=== PATIENT | male | born 1980 | race African-American/Black ===

== ENCOUNTER 2016-12-26 06:36 | Emergency (ER) | payer MEDICARE ==
[2016-10-07 09:46] VITALS: BMI 25.1
[~2016-12-26 06:36] MED LIST: AMBIEN5 MG PO; ARANESP40 MCG/ML SC; CATAPRES0.2 MG PO; COREG12.5 MG PO; FERROUS SULFAT325 MG PO; FLORANEX / LACT1 TAB PO; FLUTICASONE PRO16 GM NASAL; GABAPENTIN100 MG PO; HUMALOG 30100 UNITS/ SC; HYDRALAZINE HCL50 MG PO; LANTUS INSULIN10 ML SC; LASIX80 MG PO; LISINOPRIL10 MG PO; MAG-OX 400 MG400 MG PO; MUCINEX DM ER1 EAC1 PO; NORCO 7.5/325 T1 TA1 PO; NORVASC10 MG PO; POTASSIUM20 MEQ/15 PO; PRINIVIL20 MG PO; PROTONIX40 MG PO; ROCALTROL0.25 MCG PO; TESSALON PERLE100 MG PO; TUMS500 MG PO
[2016-12-26 07:13] LABS: BASOPHILS 0.2 % (0.0-2.0); EOSINOPHILS 0.4 % (0-7); HEMATOCRIT 35.5 % (42.0-54.0); HEMOGLOBIN 11.9 g/dL (13.5-17.5); IMMATURE GRANULOCYTES 0.4 % (0-5); LYMPHOCYTES 15.4 % (15-50); MCH 29.9 pg (26.0-34.0); MCHC 33.5 g/dL (31.0-37.0); MCV 89.2 fL (80.0-100.0); MEAN PLATELET VOLUME 9.3 fL (7.4-10.4); MONOCYTES 6.2 % (2-11); NEUTROPHILS 77.4 % (40-80); RBC 3.98 10x6/uL (4.20-6.10); RDW 13.5 % (11.5-14.5); WBC 13.7 10x3/uL (4.8-10.8)
[2016-12-26 07:16] LABS: PLATELET COUNT 371 10x3/uL (130-400)
[2016-12-26 07:27] LABS: ANION GAP 19.1 mmol/L (8-16); BILIRUBIN - TOTAL 0.52 mg/dL (0.2-1.3); CALCIUM 9.9 mg/dL (8.5-10.1); CARBON DIOXIDE 25.9 mmol/L (21.0-32.0); CREATININE - SERUM 9.3 mg/dL (0.6-1.3); PROTEIN - SERUM 8.6 g/dL (6.4-8.2)
== END 2016-12-26 10:35 | disposition home or self-care (01) ==
LOC: D.ER 06:36
PROVIDERS: Emergency Medicine
DX: R11.10 Vomiting, unspecified (principal); I12.0 Hypertensive chronic kidney disease with stage 5 chronic kidney disease or end stage renal disease; N18.6 End stage renal disease; F17.200 Nicotine dependence, unspecified, uncomplicated

== ENCOUNTER 2016-12-27 10:18 | Inpatient (IN) | payer MEDICARE ==
[~2016-12-27] VITALS: Ht 167.6 cm; Wt 63.2 kg
[2016-12-27 12:08] LABS: BASOPHILS 0.3 % (0.0-2.0); EOSINOPHILS 0.4 % (0-7); HEMATOCRIT 37.7 % (42.0-54.0); HEMOGLOBIN 12.6 g/dL (13.5-17.5); IMMATURE GRANULOCYTES 0.3 % (0-5); LYMPHOCYTES 20.5 % (15-50); MCH 29.8 pg (26.0-34.0); MCHC 33.4 g/dL (31.0-37.0); MCV 89.1 fL (80.0-100.0); MEAN PLATELET VOLUME 9.2 fL (7.4-10.4); MONOCYTES 6.5 % (2-11); PLATELET COUNT 372 10x3/uL (130-400); RBC 4.23 10x6/uL (4.20-6.10); RDW 13.6 % (11.5-14.5); WBC 11.8 10x3/uL (4.8-10.8)
[2016-12-27 12:17] LABS: KETONE - SERUM NEGATIVE (NEGATIVE)
[2016-12-27 12:25] LABS: ALBUMIN 4.1 g/dL (3.4-5.0); ALKALINE PHOSPHATASE 158 U/L (46-116); ALT (SGPT) 17 U/L (10-68); AMYLASE - SERUM 84 U/L (25-115); BILIRUBIN - TOTAL 0.57 mg/dL (0.2-1.3); CALCIUM 10.1 mg/dL (8.5-10.1); CARBON DIOXIDE 25.7 mmol/L (21.0-32.0); CHLORIDE - SERUM 99 mmol/L (98-107); LIPASE 84 U/L (73-393); POTASSIUM - SERUM 4.6 mmol/L (3.5-5.1); PROTEIN - SERUM 8.8 g/dL (6.4-8.2); SODIUM 142 mmol/L (136-145); eGFR NON AFRICAN AMERICAN 5 mL/min (90-120)
[2016-12-27 12:27] LABS: CALC OSMOLALITY 307 mosm/kg (275-300); CREATININE - SERUM 12.6 mg/dL (0.6-1.3); GLUCOSE 260 mg/dL (74-106); UREA NITROGEN 57 mg/dL (7-18)
--- NOTE | 2016-12-27 16:35 | NUR ---
ARRIVE TO ROOM VIA STRETCHER FROM ER. LETHARGIC. UNABLE TO FOLLOW COMMANDS. MAX TRANSFER FROM STRETCHER TO BED. SPEECH GARBLED. UNABLE TO COMPLETE MED REC. PATIENT'S BROTHER WILL BRING CURRENT LIST. CONTINUE ADMISSION PROCESS. BED LOCKED AND LOW. CALL LIGHT IN REACH. TWO SIDERAILS UP.
[2016-12-27 18:12] VITALS: BP 188/87
[2016-12-27 18:26] VITALS: BP 188/87; BMI 23.6
[2016-12-27 20:00] VITALS: BP 186/102
--- NOTE | 2016-12-27 23:54 | NUR ---
PT AWOKE AT 22:45, CONFUSED, CRYING UNCONTROLLABLY, DISORIENTED, AND VERY FRIGHTENED. PT WAS EASILY CONSOLABLE, BUT REMAINS CONFUSED AND DISORIENTED. I HAVE ASSURED PT THAT HE IS SAFE, AND THAT WE WILL DO EVERYTHING WE CAN TO HELP HIM FEEL BETTER. PT DID EAT A JELLO, AND DID DRINK 2 LARGE CUPS OF H2O. PT IS CURRENTLY RESTING WITHOUT ANY ACUTE DISTRESS OR NEEDS. EYES CLOSED, RESPIRATIONS EVEN AND UNLABORED. PT IS EASILY ROUSABLE AT THIS TIME TO VERBAL STIMULI. WE HAVE BEEN UNABLE TO OBTAIN A U/A AT THIS TIME, BUT WILL CONTINUE TO ASSESS FREQUENTLY AND COLLECT ONE SOON PT VOIDS.
[2016-12-28 04:15] VITALS: BP 194/107
[2016-12-28 05:53] LABS: BASOPHILS 0.4 % (0.0-2.0); EOSINOPHILS 1.4 % (0-7); HEMATOCRIT 36.2 % (42.0-54.0); IMMATURE GRANULOCYTES 0.3 % (0-5); LYMPHOCYTES 24.8 % (15-50); MCH 29.6 pg (26.0-34.0); MCHC 33.1 g/dL (31.0-37.0); MCV 89.4 fL (80.0-100.0); MEAN PLATELET VOLUME 9.4 fL (7.4-10.4); MONOCYTES 10.1 % (2-11); PLATELET COUNT 345 10x3/uL (130-400); RBC 4.05 10x6/uL (4.20-6.10); RDW 13.5 % (11.5-14.5); WBC 11.6 10x3/uL (4.8-10.8)
[2016-12-28 06:38] LABS: ANION GAP 22.3 mmol/L (8-16); CALCIUM 9.4 mg/dL (8.5-10.1); CARBON DIOXIDE 22.3 mmol/L (21.0-32.0); CREATININE - SERUM 13.8 mg/dL (0.6-1.3); PHOSPHOROUS 7.4 mg/dL (2.5-4.9); POTASSIUM - SERUM 4.6 mmol/L (3.5-5.1); TROPONIN-I 0.021 ng/mL (0.000-0.060); VANCOMYCIN - RANDOM 17.3 ug/mL (10.0-20.0)
--- NOTE | 2016-12-28 06:50 | NUR ---
PT EASILY ROUSABLE THE AM TO VERBAL STIMULI. PT IS COOPERATIVE AND DOES FOLLOW SIMPLE COMMANDS. PT DEMONSTRATES RIGOROUS SHAKING, AND STATES HE FEELS LIKE HE IS FEBRILE AT THIS TIME. PT STATES HE HAS A BAD HEADACHE. DENIES ANY OTHER NEEDS.
--- NOTE | 2016-12-28 07:30 | NUR ---
RECEIVED REPORT. ASSUMED CARE OF PATIENT. CALL LIGHT WITHIN REACH. RESTING WITH EYES CLOSED. PATIENT NOTED TO BE SNORING. RESP EVEN AND UNLABORED. NO DISTRESS.
[2016-12-28 08:27] VITALS: BP 191/95
--- NOTE | 2016-12-28 09:28 | NUR ---
0900 ATTEMPTING TO GET PATIENT REPOSITIONED IN BED TO TRAVEL DOWNSTAIRS TO DIALYSIS UNIT, PATIENT NOT NOT FOLLOWING COMMANDS. PATIENT NOTED TO BE COUGHING AND CLEAR SPUTUM DROOLING OUT SIDE OF MOUTH. PATIENT PLACED ON LEFT SIDE, SUCTION PROVIDED. PULMONARY PHYSICAL THERAPIST AT BEDSIDE AT THIS TIME. DIALYSIS AT BEDSIDE TO RETRIEVE PATIENT. PATIENT UNABLE TO LEAVE UNIT. REQUEST DIALYSIS BE DONE AT BEDSIDE. HYPERTENION NOTED, 203/93. O2 SAT 97% ON ROOM AIR. DIALYSIS BRINGING MACHINES UP TO UNIT AT THIS TIME. PATIENT RESPONDING TO NAME BY TURNING HEAD IN DIRECTION OF THIS WRITERS VOICE. WILL CONTINUE TO MONITOR.
--- NOTE | 2016-12-28 09:40 | NUR ---
IV access-22 gauge IV catheter in left wrist after 3 attempts, due to patient uncooperative, pulling at IV and twisting and turning away. Maine Vasques RN
--- NOTE | 2016-12-28 11:36 | NUR ---
DIALYSIS AT BEDSIDE AT THIS TIME. RESTING ON LEFT LATERAL SIDE. RESP EVEN AND UNLABORED. NO DISTRESS. PATIENT CONTINUES TO FIGHT WHEN CARES ARE BEING RENDERED. RESPONDS TO NAME BUT DOES NOT FOLLOW DIRECTIONS WELL. THIS IS NOT CHANGE IN PATIENT CONDITION SINCE RECEIVED REPORT THIS AM.
[2016-12-28 12:02] VITALS: BP 198/85
--- NOTE | 2016-12-28 13:32 | NUR ---
DIALYSIS REMAINS AT BEDSIDE. TOLERATING DIALYSIS WELL. PATIENT BECOMING MORE RESPONSIVE AND MOVING MORE IN BED. TELEMETRY PATENT. NO DISTRESS. RESP EVEN AND UNLABORED.
[2016-12-28 14:26] VITALS: Ht 167.6 cm; Wt 63.2 kg
--- NOTE | 2016-12-28 14:43 | NUR ---
DR. HAM AT BEDSIDE AND INFORMED HIM THAT PATIENT PHYSICAL STATE HAS NOT CHANGED MUCH ALL DAY, HE IS NOT DOING ALOT THAT WE ASK OF HIM AND ONLY RESPONDING TO NAME. REPORTED THAT PATIENT DOES FIGHT AND MOVE AWAY FROM US WHEN TRYING TO PROVIDED CARES. WHEN DIALYSIS IS COMPLETE, INFORMED DR THAT CATAPRESS PATCH WOULD BE APPLIED BUT WITH HIM NOT RESPONDING APPROPRIATELY, NOT ABLE TO GIVE HIM ANY PO MEDS. ASKED IF WE COULD HAVE AN IV ANTIHYPERTENSIVE MED. DR. HAM GAVE ORDERS THAT CT OF HEAD OF NEGATIVE, NOT SURE WHAT PATIENT HAS BEEN DOING AT HOME AND IF NO IMPROVEMENT, DAY SHIFT NURSE MUST CONSULT FIRST THING IN AM.
--- NOTE | 2016-12-28 14:57 | NUR ---
DIALYSIS COMPLETE. 1400 REMOVED FROM PATIENT. PATIENT CONTINUES TO SLEEP. WILL OPEN EYES WHEN NAME IS CALLED AND QUICKLY CLOSES EYES AND FALLS ASLEEP. CATAPRES PATCH 0.3MG PLACED TO LEFT DELTOID AREA AT THIS TIME. RESP EVEN AND UNLABORED.
--- NOTE | 2016-12-28 15:00 | NUR ---
PATIENT HAS NOW PLACED HIMSELF IN PRONE POSITION AND RESTING WITH EYES CLOSED.
[2016-12-28 16:38] VITALS: BP 196/108
--- NOTE | 2016-12-28 17:08 | NUR ---
FSBS 108. NO INSULIN COVERAGE PROVIDED PER SLIDING SCALE.
[2016-12-28 21:06] VITALS: BP 180/85
--- NOTE | 2016-12-28 22:00 | NUR ---
RECEIVED IN BEDROOM. LETHARGIC. UNABLE TO VERBALIZE NEEDS. CONTINUOUSLY ATTEMPTS TO STAND AND WALK WITHOUT ASSIST. GHAZALA BRYAN CALLED AND RECEIVED PULL MHT FROM [facility] TO SIT ONE ON ONE WITH PATIENT FOR SAFETY. BED ALARM IS ON AND CONTINUE TO SOUND WHEN ATTEMPTS TO STAND ARE MADE. CONTINUE TO MONITOR FOR SAFETY
[2016-12-29] VITALS (34 sets, daily range): BP systolic 110–222; BP diastolic 68–128
--- NOTE | 2016-12-29 00:01 | NUR ---
B/P 222/110. LILIBETH DONOVAN PAGED. NEW ORDER FOR LOPRESSOR 5 MG IV RECEIVED AND GIVEN.
--- NOTE | 2016-12-29 02:00 | NUR ---
SPOKE WITH LILIBETH DONOVAN, LADLE MECHANIC FOR RENAL R/T PTS UNCONTROLLED HTN WITHOUT RESPONDING TO THE IV LOPRESSOR GIVEN 1 HOUR PRIOR TO RECHECK. PT DOES HAVE THE CATAPRES 0.3 PATCH ON HIS LEFT DELTOID, AND HAS HAD THE 21:00 DOSE OF LISINOPRIL, ALSO WITHOUT ANY IMPROVEMENT. PT C/O A HAD HEADACHE AT THIS TIME. APRESOLINE 25MG IV Q 6 HOURS PRN SYSTOLIC PRESSURE > 170. WILL ADMINISTER AND CONTINUE TO MONITOR PT CLOSELY.
[2016-12-29 05:52] LABS: BASOPHILS 0.3 % (0.0-2.0); EOSINOPHILS 2.5 % (0-7); HEMATOCRIT 36.6 % (42.0-54.0); HEMOGLOBIN 12.2 g/dL (13.5-17.5); IMMATURE GRANULOCYTES 0.4 % (0-5); LYMPHOCYTES 23.9 % (15-50); MCH 29.8 pg (26.0-34.0); MCHC 33.3 g/dL (31.0-37.0); MCV 89.5 fL (80.0-100.0); MEAN PLATELET VOLUME 9.8 fL (7.4-10.4); MONOCYTES 12.4 % (2-11); NEUTROPHILS 60.5 % (40-80); PLATELET COUNT 322 10x3/uL (130-400); RBC 4.09 10x6/uL (4.20-6.10); RDW 13.4 % (11.5-14.5); WBC 11.1 10x3/uL (4.8-10.8)
[2016-12-29 06:39] LABS: ANION GAP 20.4 mmol/L (8-16); CALCIUM 9.4 mg/dL (8.5-10.1); CARBON DIOXIDE 27.6 mmol/L (21.0-32.0); PHOSPHOROUS 6.5 mg/dL (2.5-4.9); THYROID STIMULATING HORMONE 0.91 uIU/mL (0.36-3.74); VANCOMYCIN - RANDOM 12.9 ug/mL (10.0-20.0)
[2016-12-29 06:43] LABS: CREATININE - SERUM 10.3 mg/dL (0.6-1.3)
--- NOTE | 2016-12-29 07:00 | NUR ---
RECEIVED PT REPORT. WILL CONTINUE PLAN OF CARE. NO OTHER NEEDS AT THIS TIME. WILL CONTINUE PLAN OF CARE. RECEIVED ORDER FROM PHYSICIAN FOR PHYSICIAN CONSULT FOR DR. SANCHEZ AND A [facility] CULTURE. WILL CONTINUE TO [facility].
--- NOTE | 2016-12-29 07:30 | NUR ---
DR. HAM SPOKE WITH RN ABOUT TRANSFERRING PT TO ICU FOR DRIP FOR LOWERING BP. PT ALSO HAS SEVERLY ALTERED MENTAL STATUS AND HAS DEVELOPED RUNNY STOOLS OVER NIGHT. NO OTHER NEEDS AT THIS TIME. WILL CONTINUE TO MONTIOR.
--- NOTE | 2016-12-29 08:03 | NUR ---
CALLED CEMENT FINISHER FOR ICU BED.
--- NOTE | 2016-12-29 09:47 | NUR ---
PATIENT IS SLEEPY. HE WILL NOT RESPOND TO QUESTIONS. I HAVE NOT SEEN ANY FAMILY HER TO INTERVIEW. CM TO FOLLOW.
--- NOTE | 2016-12-29 18:31 | NUR ---
1130 PT ARRIVED ON UNIT VIA BED. PT HYPERTENSIVE AND DISORIENTED AT THIS TIME. UNABLE TO ANSWER QUESTIONS AND SPEECH IS GARBLED. PT NOT RESPONDING TO COMMANDS BUT LOCALIZES PAIN. WILL NOTIFY DOCTOR OF STATUS.
--- NOTE | 2016-12-29 18:35 | NUR ---
1330 PT RESTING BUT TURNING IN BED FREQUENTLY. BP DECREASING WITH LABETELOL DRIP, TITRATING NEEDED. NO FURTHER CHANGES.
--- NOTE | 2016-12-29 18:37 | NUR ---
1530 PT UP OUT OF BED DISORIENTED AND STATING HE NEEDS TO GO FIND A BATHROOM. EXPLAINED TO PT THAT HE CANT BE UP OUT OF BED AND PT BECAME COMBATIVE AND ATTEMPTED TO SWING AT NURSES. CALMED PT DOWN AND ALLOWED HIM TO USE BEDSIDE COMMODE WITH SUPERVISION. PT HAD BM AND IS BACK IN BED.
--- NOTE | 2016-12-29 18:42 | NUR ---
1730 BP REMAINS STABLE AND WNL. PT IN BED AND ENCOURAGED TO STAY IN BED AND CALL IF HE NEEDS ASSISTANCE.
--- NOTE | 2016-12-29 19:30 | NUR ---
RECEIVED PATIENT ASLEEP IN BED WITH EYES CLOSED, ASSESSMENT COMPLETED PER FLOWSHEET. PATIENT SLIGHTLY DISORIENTED UPON AWAKENING, ORIENTED X4 UPON QUESTIONING. EYES PERRLA @ 3MM WITH BRISK RESPONSE, SCLERA IS WHITE. ORAL/NASAL MUCOSA IS MOIST AND INTACT, TONGUE IS MIDLINE. S1/S2 NOTED WITH PATIENT NST ON TELEMETRY WITH HR 89, RHYTHMIC AND REGULAR. BREATHING IS EVEN AND UNLABORED, LUNG SOUNDS DIMNISHED THROUGHOUT ALL WAYNE. ABDOMEN IS ROUD AND SOFT, NON-TENDER TO PALPATION WITH BOWEL SOUNDS ACTIVE X4. PATIENT AMBULATES TO BEDSIDE COMMODE WITHOUT ASSISTANCE, SEMI-FORMED STOOL NOTED. FULL ROM ALL EXTREMITIES WITH ALL PULSES PALPABLE, CAP REFILL <3 SEC. 20G PIV L FOREARM, PATENT WITH FLUIDS INFUSING. FISTULA NOTED R UPPER ARM, DRESSING CDI WITH THRILL/BRUIT PRESENT. PATIENT STATES "GETTING HUNGRY", SANDWICH TRAY PROVIDED AND PATIENT STATES "BETTER". NO FURTHER NEEDS AT THIS TIME, ALL VSS AND WILL CONTINUE TO MONITOR.
--- NOTE | 2016-12-29 23:00 | NUR ---
REASSESSMENT COMPLETED PER FLOWSHEET, PATIENT RESTING IN BED WITH EYES CLOSED. S1/S2 NOTED WITH PATIENT NSR ON TELEMETRY WITH HR 90, RHYTHMIC AND REGULAR. BREATHING IS EVEN AND UNLABORED, DIMINISHED LUNG SOUNDS ALL LOBES. PATIENT SLIGHTLY LETHARGIC AND SLIGHTLY DISORIENTED TO SITUATION, PATIENT ORIENTED WHEN FULLY AWAKE. PATIENT DENIES PAIN OR OTHER NEEDS AT THIS TIME, ALL VSS AND WILL CONTINUE TO MONITOR.
[2016-12-30] VITALS (24 sets, daily range): BP systolic 100–185; BP diastolic 54–98
--- NOTE | 2016-12-30 03:10 | NUR ---
REASSESSMENT COMPLETED PER FLOWSHEET, PATIENT RESTING IN BED WITH EYES CLOSED. S1/S2 NOTED WITH PATIENT NSR ON TELEMETRY, RHYTHMIC AND REGULAR. BREATHING IS SLIGHTLY SHALLOW WITH DIMINISHED LUNG SOUNDS IN ALL WAYNE, OXYGEN SAT 96% ON ROOM AIR. PATIENT DENIES PAIN OR OTHER NEEDS AT THIS TIME, STATES "JUST WANT TO GET SOME SLEEP". ALL VSS AND WILL CONTINUE TO MONITOR.
[2016-12-30 04:17] LABS: BASOPHILS 0.4 % (0.0-2.0); EOSINOPHILS 4.3 % (0-7); HEMATOCRIT 32.2 % (42.0-54.0); HEMOGLOBIN 10.6 g/dL (13.5-17.5); IMMATURE GRANULOCYTES 0.3 % (0-5); LYMPHOCYTES 34.1 % (15-50); MCH 29.4 pg (26.0-34.0); MCHC 32.9 g/dL (31.0-37.0); MCV 89.2 fL (80.0-100.0); MEAN PLATELET VOLUME 9.6 fL (7.4-10.4); MONOCYTES 14.6 % (2-11); NEUTROPHILS 46.3 % (40-80); PLATELET COUNT 264 10x3/uL (130-400); RBC 3.61 10x6/uL (4.20-6.10); RDW 13.3 % (11.5-14.5); WBC 9.7 10x3/uL (4.8-10.8)
--- NOTE | 2016-12-30 04:29 | NUR ---
PATIENT SBP > 170, PRN HYDRALAZINE GIVEN PER ORDERS. WILL CONTINUE TO MONITOR.
[2016-12-30 04:31] LABS: CALCIUM 8.9 mg/dL (8.5-10.1); CARBON DIOXIDE 26.3 mmol/L (21.0-32.0); CREATININE - SERUM 12.3 mg/dL (0.6-1.3); PHOSPHOROUS 7.8 mg/dL (2.5-4.9)
[2016-12-30 04:37] LABS: POTASSIUM - SERUM 3.3 mmol/L (3.5-5.1)
--- NOTE | 2016-12-30 08:45 | NUR ---
0700 PT AWAKE AND ALERT. DISORIENTED TO SITUATION. PT APPEARS TO BE UNAWARE OF SURROUNDINGS BUT IS ABLE TO FOLLOW COMMANDS AND COMPREHEND CONVERSATION AND EDUCATION. EXPLAINED TO PT WHY HE IS HERE AND HE STATES THAT HE UNDERSTANDS. BP IS WNL AND NORMAL SINUS RHYTHM ON MONITOR NOTED. PT ABLE TO GET UP TO BEDSIDE COMMODE WITH ASSISTANCE. PT DENIES PAIN AT THIS TIME. WILL CONTINUE TO MONITOR
--- NOTE | 2016-12-30 09:39 | NUR ---
Is the patient Alert and Oriented? Yes 0 * How many steps to enter\exit or inside your home? 1 0 * PCP BROTHER IS ATTEMPTING TO GET PCP FOR PATIENT 0 * Pharmacy [facility] [address] * Preadmission Environment Home with Family 0 * ADLs Independent 0 * Equipment Cane 0 * Other Equipment PATIENT HAD CANE BUT HIS BROTHER THINKS IT WAS LEFT AT REHAB 0 * List name and contact numbers for known caregivers / representatives who currently or will assist patient after discharge: BROTHER: SON [phone] BROTHER: CLAUDIO [phone] 0 * Community resources currently utilized None 0 * Additional services required to return to the preadmission environment? Yes 0 * Can the patient safely return to the preadmission environment? No 0 * Has this patient been hospitalized within the prior 30 days at any hospital? No PATIENT IS MORE ALERT TODAY. HIS BROTHERS, SON AND CLAUDIO ARE HERE TO VISIT. THEY ARE ANSWERING QUESTIONS FOR HIM. PATIENT LIVES AT HOME WITH HIS AUNT AND UNCLE. PATIENT DOES NOT HAVE A PCP. HIS BROTHER, SON, IS TRYING TO GET HIM A PCP. HE STATES HE IS CHECKING WITH [facility] AND I TOLD HIM THAT I THOUGHT DR. MOORE WAS ACCEPTING NEW PATIENTS. HE GETS HIM MEDICATIONS FROM [facility] [address]. THEY STATES HE HAS NEVER HAD HOME HEALTH CARE AND HAD A CANE BUT LEFT IT AT [facility] WHEN HE DID REHAB THERE. THERE IS ONLY 1 STEP TO ENTER HIS FAMILY'S HOME. PATIENT DOES OP DIALYSIS AT [facility] ON . HE STATES THAT HIS AUNT OR UNCLE DRIVE HIM TO AND FROM DIALYSIS. PATIENT'S BROTHER, SON, IS TRYING TO GET MEDICAID ASSISTANCE FOR PATIENT. HE STATES THEY ARE NEEDING TO GET PATIENT A PLACE TO LIVE SO HE CAN HAVE 24 HOUR SUPERVISION. HE STATES HE CHECKED AT [facility] AND THEY STATED HE DOES NOT QUALIFY FOR LTC THERE. WE DISCUSSED THAT PATIENT MAY NEED REHAB AT DISCHARGE AND THEY WOULD LIKE FOR HIM TO BE EVALUATED BY [facility] FOR REHAB IF NEEDED.
--- NOTE | 2016-12-30 11:04 | NUR ---
Nutrition follow-up: Diet: Renal consistent CHO PO intake very poor due to altered mental status FSBS high, PO4: 7.8 WT: 138# Pt will need nutrition support started if PO intake remains poor. Recommend NGT placement and Nepro started @ 20 ml/hr with increase to goal rate of 50 ml/hr. RDN following.
--- NOTE | 2016-12-30 12:38 | NUR ---
0900 PT SITTING UP EATING BREAKFAST INDEPENDENTLY IN BED. DENIES PAIN AT THIS TIME AND STATES HE KNOWS WHO AND WHERE HE IS. ABLE TO FOLLOW COMMANDS.
--- NOTE | 2016-12-30 12:54 | NUR ---
[address] HAM TO UPDATE ON PT IMPROVING NEURO STATUS. WILL KEEP IN ICU UNTIL FULLY IMPROVED. MEDS UPDATED. NO FURTHER CHANGES
--- NOTE | 2016-12-30 12:57 | NUR ---
IV ACCESS-20 GAUGE INSERTED IN LEFT FOREARM FOR ACCESS. ETHAN BOLANOS RN
--- NOTE | 2016-12-30 12:59 | NUR ---
1300 PT RESTING COMFORTABLY AT THIS TIME. NEW PIV SITED BY VASCULAR ACCESS NURSE, TAPED AND SECURED.
--- NOTE | 2016-12-30 16:27 | NUR ---
1500 PT HAD SECOND SEIZURE TODAY LASTING [address] SANCHEZ AND [address] HAM NOTIFIED. MEDS GIVEN ORDERED. BED RAILS PADDED AND PT TURNED ON SIDE. NO FURTHER CHANGES AT THIS TIME. WILL CONTINUE TO MONITOR CLOSELY. PLANS TO UNDERGO DIALYSIS TOMORROW
--- NOTE | 2016-12-30 18:32 | NUR ---
1700 PT ABLE TO EAT DINNER AFTER PERIOD OF INCOHERENCE. PT ASLEEP AND STABLE AT THIS TIME.
--- NOTE | 2016-12-30 19:14 | NUR ---
REPORT RECEIVED. ASSESSMENT COMPLETE PER FLOW SHEET. VSS. GIVEN PM SNACK ATE 100% DENIES FURTHER NEEDS. WILL CONTINUE TO MONITOR.
--- NOTE | 2016-12-30 20:58 | NUR ---
NO FAMILY AT THIS TIME. ASSISTED TO BEDSIDE COMMODE. GIVEN BB LINEN CHANGE.
--- NOTE | 2016-12-30 23:42 | NUR ---
REASSESSMENT COMPLET EPER FLOW SHEET. VSS. NO NEW CHANGES. WILL CONTINUE TO MONITOR.
[2016-12-31] VITALS (24 sets, daily range): BP systolic 120–186; BP diastolic 62–106
--- NOTE | 2016-12-31 03:24 | NUR ---
REASSESSMENT COMPLETE PER FLOW SHEET. VSS. NO NEW CHANGES. [facility] MONITOR.
[2016-12-31 03:28] LABS: BASOPHILS 0.2 % (0.0-2.0); EOSINOPHILS 6.3 % (0-7); HEMATOCRIT 33.2 % (42.0-54.0); HEMOGLOBIN 11.2 g/dL (13.5-17.5); IMMATURE GRANULOCYTES 0.5 % (0-5); LYMPHOCYTES 29.4 % (15-50); MCH 29.8 pg (26.0-34.0); MCHC 33.7 g/dL (31.0-37.0); MCV 88.3 fL (80.0-100.0); MEAN PLATELET VOLUME 9.4 fL (7.4-10.4); MONOCYTES 10.2 % (2-11); NEUTROPHILS 53.4 % (40-80); PLATELET COUNT 240 10x3/uL (130-400); RBC 3.76 10x6/uL (4.20-6.10); RDW 13.2 % (11.5-14.5)
[2016-12-31 03:37] LABS: WBC 12.6 10x3/uL (4.8-10.8)
[2016-12-31 03:52] LABS: ANION GAP 18.3 mmol/L (8-16); CALCIUM 8.6 mg/dL (8.5-10.1); CARBON DIOXIDE 27.2 mmol/L (21.0-32.0); CREATININE - SERUM 14.5 mg/dL (0.6-1.3); PHOSPHOROUS 7.8 mg/dL (2.5-4.9); POTASSIUM - SERUM 3.5 mmol/L (3.5-5.1)
--- NOTE | 2016-12-31 07:50 | NUR ---
LYING IN BED AT THIS TIME RESTING. RESPIRATIONS AT STEADY AND UNLABORED RATE. AWAKENS EASILY WHEN STAFF STATES PT NAME. NO ACUTE DISTRESS NOTED. WILL CONTINUE PLAN OF CARE.
--- NOTE | 2016-12-31 09:29 | NUR ---
INCONTINENT BOWEL MOVEMENT NOTED. TOTAL BED CHANGE PROVIDED. NO ACUTE DISTRESS NOTED. WILL CONTINUE PLAN FO CARE.
--- NOTE | 2016-12-31 10:27 | NUR ---
RECIEVING DIALYSIS AT THIS TIME. NO ACUTE DISTRESS NOTED. VSS. WILL CONTINUE PLAN OF CARE.
--- NOTE | 2016-12-31 10:55 | NUR ---
PATIENT PATHWAYS: [facility]. Med recs to the unit. Pt remains in ICU. BMM Dialysis Coordinator.
--- NOTE | 2016-12-31 11:28 | NUR ---
Patient Name: JUVENAL MILTON Encounter No: [id number] : 1980 Primary Insurance: MEDICARE A & B Anticipated DC Date: Planned Disposition: Care Home Facility External Planned Provider: [facility] MEDICARE REHAB BED OR HOME WITH FAMILY AND HOME HEALTH DCP follow-up note: CM RECEIVED REQUEST TO MEET WITH PT AND HIS BROTHER IN ROOM. CM MET WITH PT AND SON MILTON ([phone]). SON IS CONCERNED THAT PT IS NOT TAKING CARE OF HIMSELF AT HOME FAR PERSONAL CARE, EATING, TAKING HIS MEDICATIONS. PT HAS BEEN LIVING WITH FAMILY MEMBERS IN [place] AND CAN RETURN THERE AT DISCHARGE. IF REHAB IS NEEDED, THEY WOULD LIKE PT TO GO TO [facility]. SON HAS MET WITH DEPARTMENT OF HUMAN SERVICES REGARDING ASSISTED LIVING AND REPORTED THAT MEDICAID NEEDED PAPERWORK FROM THE DOCTOR. CM OBSERVED THAT PT HAS NO ACTIVE MEDICAID LISTED ON REGISTRATION AND ASKED IF PT HAD MEDICAID NOW. SON REPORTS HE HAS PICKED UP THE MEDICAID APPLICATION AND IS IN PROCESS OF FILLING IT OUT. CM EXPLAINED THAT MEDCAID IS A PROGRAM BASED ON FINANICAL QUALIFICATION, NOT MEDICAL NEED, AND THAT THE FIRST STEP IS TO GET APPLICATION COMPLETED AND PROCESSED TO DETERMINE MEDICAID ELIGIBILITY AND THAT FAMILY CAN EXPLORE PERSONAL CARE AGENCIES OR ASSISTED LIVING, BUT MEDICAID ELIGIBILTY WILL NEED TO BE ESTABLISHED; ONCE APPROVED, THEN THE DOCTOR WOULD NEED TO ASSIST WITH ANY NEEDED PAPERWORK TO JUSTIFY PERSONAL CARE AT HOME OR ASSISTED LIVING ARRANGEMENTS FOR MEDICAID APPROVAL FOR THOSE SERVICES WHICH ARE NOT AUTOMATIC WITH MEDICAID QUALIFICATION. CM EXPLAINED THAT MEDICARE IS A FEDERAL PROGRAM THAT CAN COVER HOME HEALTH SERVICES AND EXPLAINED WHAT HOME HEALTH CAN AND CANNOT DO. CM EXPLAINED THAT ASSISTED LIVING FACILITIES THAT ACCEPT MEDICAID ARE EXTREMELY LIMITED IN [facility]. CM PROVIDED CM CONTACT INFORMATION TO SON MILTON. MR. MILTON WILL FOLLOW UP WITH [facility] DEPARTMENT OF ALL PURPOSE CLERK TODAY. IF PT NEEDS REHAB AT DISCHARGE, FAMILY WOULD LIKE REHAB FOR PT AT [facility]. PT CAN RETURN TO THE AUNT'S HOME FOR CONTINUED CARE AND IF SO, FAMILY WOULD LIKE HOME HEALTH SERVICES. CM TO FOLLOW AND ASSIST NEEDED. Nadir Dallas, CASE MANAGEMENT
--- NOTE | 2016-12-31 12:55 | NUR ---
Mr. Noel had bedside hemodialysis today via his right lower arm av fistula from 09:30 until 12:30 pm. Average bl;ood flow was 350 mls/minute. Net fluid removed was 2500 mls. Post vital signs were: B/P:180/99, HR:91, Temp:98.4, Resps:20.
--- NOTE | 2016-12-31 13:34 | NUR ---
IV TO LEFT HAND LEAKING AND NO LONGER USABLE, NEW IV PLACED TO RIGHTHAND 22G. FLUSHES WELL. NO ACUTE DISTRESS NOTED. WILL CONTINUE PLAN OF CARE.
--- NOTE | 2016-12-31 14:46 | NUR ---
UP IN BED AWAKE AT THIS TIME WATCHING TV. DENIES ANY NEEDS. WILL CONTINUE PLAN OF CARE.
--- NOTE | 2016-12-31 16:20 | NUR ---
UP IN BED WATCHING TV AT THIS TIME. DENIES ANY NEEDS. NO ACUTE DISTRESS NOTED. WILL CONTINUE PLAN FO CARE.
--- NOTE | 2016-12-31 16:47 | NUR ---
BP 184/104, PRN APRESOLINE ADMIN AT THIS TIME. WILL CONTINUE TO OBSERVE.
--- NOTE | 2016-12-31 17:59 | NUR ---
CONTINENT BOWEL MOVEMENT NOTED VIA BEDSIDE TOILET, TRANSFERRED VIAMINIMAL ASSIST. NO ACUTE DISTRESS NOTED. WILLCONTINUE PLAN OF CARE.
--- NOTE | 2016-12-31 19:00 | NUR ---
1900: Pt awake, alert, and oriented. Pt is calm and cooperative at this time. Pt requests "jello." Pt remains SR on CM 85 with BP 150/100's. Right AVF CDI with no s/s of bleeding or oozing.
--- NOTE | 2016-12-31 21:00 | NUR ---
2100: Assisted pt with repositioning, provided water, and adjusted room lighting per pt request. No change in pt RESP/CV/NV status. No change in IVF/UOP.
[2017-01-01] VITALS (19 sets, daily range): BP systolic 130–187; BP diastolic 71–101
[2017-01-01 08:06] LABS: BASOPHILS 0.3 % (0.0-2.0); EOSINOPHILS 7.6 % (0-7); HEMATOCRIT 33.6 % (42.0-54.0); IMMATURE GRANULOCYTES 0.2 % (0-5); LYMPHOCYTES 26.1 % (15-50); MCH 29.2 pg (26.0-34.0); MCHC 32.7 g/dL (31.0-37.0); MCV 89.1 fL (80.0-100.0); MEAN PLATELET VOLUME 10.2 fL (7.4-10.4); MONOCYTES 8.7 % (2-11); NEUTROPHILS 57.1 % (40-80); PLATELET COUNT 217 10x3/uL (130-400); RBC 3.77 10x6/uL (4.20-6.10); RDW 13.1 % (11.5-14.5)
[2017-01-01 08:07] LABS: WBC 8.7 10x3/uL (4.8-10.8)
[2017-01-01 08:21] LABS: ANION GAP 17.8 mmol/L (8-16); CALCIUM 8.8 mg/dL (8.5-10.1); CARBON DIOXIDE 28.7 mmol/L (21.0-32.0); PHOSPHOROUS 6.3 mg/dL (2.5-4.9); POTASSIUM - SERUM 3.5 mmol/L (3.5-5.1)
[2017-01-01 08:31] LABS: CREATININE - SERUM 10.1 mg/dL (0.6-1.3)
--- NOTE | 2017-01-01 08:50 | NUR ---
UP IN BED EATING BREAKFAST INDEPENDENTLY. NO ACUTE DISTRESS NOTED. WILL CONTINUE PLAN OF CARE.
--- NOTE | 2017-01-01 10:40 | NUR ---
LYING IN BED RESTING AT THIS TIME. RESPIRATIONS AT STEADY AND UNLABORED RATE. AWAKENS EASILY WHEN STAFF STATES PT NAME. NO ACUTE DISTRESS NOTED. WILL CONTINUE PLAN OF CARE.
--- NOTE | 2017-01-01 12:58 | NUR ---
UP IN BED AT THIS TIME. DENIES ANY NEEDS. NO ACUTE DISTRESS NOTED. WILL CONTINUE PLAN OF CARE.
--- NOTE | 2017-01-01 14:39 | NUR ---
RESTING IN BED, RESPIRATIONS AT STEADY AND UNLABORED RATE. NO ACUTE DISTRESS NOTED. AWAKENS EASILY WHEN STAFF STATES PT NAME. WILL CONTINUE PLAN OF CARE.
--- NOTE | 2017-01-01 17:01 | NUR ---
NOTED PT TO TRANSFER TO ROOM 2128, WILL CALL REPORT SHORTLY.
--- NOTE | 2017-01-01 17:15 | NUR ---
REPORT GIVEN TO RAMONA FOR PT TO GO TO ROOM 2127. WILL TRANSFER PT SHORTLY.
--- NOTE | 2017-01-01 17:17 | NUR ---
CALLED PT FAMILY AT THIS TIME TO NOTIFY OF TRANSFER.
--- NOTE | 2017-01-01 17:32 | NUR ---
TRANSFERRED TO 212 AT THIS TIME. NO ACUTE DISTRESS NOTED. TRANSFERRED VIA WHEELCHAIR WITH ALL PERSONAL ITEMS. NO FURTHER ACTIONS.
--- NOTE | 2017-01-01 17:35 | NUR ---
RECEIVED PT TO ROOM 2127 VIA W/C IN STABLE CONDITION DENIES ANY NEEDS AT THIS TIME AAOX4 PT LEGALLY BLIND NAD NOTED
--- NOTE | 2017-01-01 23:21 | NUR ---
INITIAL ROUNDS COMPLETED AT 1920 HRS. PT DENIED ANY DISCOMFORT. COFFEE GIVEN PER REQUEST. BROTHER AT BEDSIDE. ASSESSMENT COMPLETED AT 2010 HRS. VSS. IV TO LFA SL. R AVF WITH GOOD BRUIT AND THRILL. LUNGS CTA. PT LEGALLY BLIND. PM MEDS GIVEN. PT CURRENTLY RESTING WITH EYES CLOSED ON R SIDE. RESP EVEN AND REGULAR. SR UP X2, CALL LIGHT WITHIN REACH.
[2017-01-02] VITALS (7 sets, daily range): BP systolic 121–223; BP diastolic 49–109
--- NOTE | 2017-01-02 00:14 | NUR ---
BS 470 AND 414 RESPECTIVELY. LAB CALLED FRO STAT GLUCOSE.
--- NOTE | 2017-01-02 00:20 | NUR ---
12 UNITS HUMALOG GIVEN SUB-Q TO UPPER L ARM. LAB DRAWING GLUCOSE.
--- NOTE | 2017-01-02 03:05 | NUR ---
PT RESTING WITH EYES CLOSED. RESP EVEN AND REGULAR. SR UP X2, CALL LIGHT WITHIN REACH AND BROTHER AT BEDSIDE.
--- NOTE | 2017-01-02 03:15 | NUR ---
BS RECHECKED PER FAMILY'S REQUEST. RESULTS OF 255 NOTED. WILL CONTINUE TO MONITOR.
--- NOTE | 2017-01-02 05:18 | NUR ---
SBP 223. APRESOLINE 10MG SIVP GIVEN TO LFA IV. INFORMED WILL RECHECK BP AND BLOOD SUGAR AT 0600. BROTHER AT BEDSIDE.
[2017-01-02 05:57] LABS: BASOPHILS 0.4 % (0.0-2.0); EOSINOPHILS 6.4 % (0-7); HEMATOCRIT 35.6 % (42.0-54.0); HEMOGLOBIN 11.8 g/dL (13.5-17.5); IMMATURE GRANULOCYTES 0.4 % (0-5); LYMPHOCYTES 44.3 % (15-50); MCH 29.3 pg (26.0-34.0); MCHC 33.1 g/dL (31.0-37.0); MCV 88.3 fL (80.0-100.0); MEAN PLATELET VOLUME 9.8 fL (7.4-10.4); MONOCYTES 11.3 % (2-11); NEUTROPHILS 37.2 % (40-80); PLATELET COUNT 231 10x3/uL (130-400); RBC 4.03 10x6/uL (4.20-6.10); RDW 12.9 % (11.5-14.5)
[2017-01-02 06:00] LABS: WBC 11.1 10x3/uL (4.8-10.8)
--- NOTE | 2017-01-02 06:08 | NUR ---
AM FSBS 88. SANDWICH GIVEN PER REQUEST. BP NOW 176/88 WITH PULSE 81. WILL CONITNUE TO MONITOR.
[2017-01-02 06:15] LABS: ANION GAP 17.8 mmol/L (8-16); CALCIUM 8.9 mg/dL (8.5-10.1); CREATININE - SERUM 11.8 mg/dL (0.6-1.3); POTASSIUM - SERUM 3.8 mmol/L (3.5-5.1)
--- NOTE | 2017-01-02 07:42 | NUR ---
ASSESSMENT COMPLETED. DENIES ANY NEEDS. PT IS LEAGLY BLIND. RIGHT AVF WITH GOOD BRUIT AND THRILL. LEFT FA SL. SR UP WITH CALL LIGHT IN REACH. WILL MONITOR
--- NOTE | 2017-01-02 11:06 | NUR ---
RESTING QUIETLY RESP UNLABORED DENIES ANY NEEDS OR DISCOMFORT NAD NOTED
[2017-01-02] MEDS ORDERED: KEPPRA500 MG PO (11:22)
[2017-01-02] MEDS ORDERED: PHOSLO667 MG PO (11:23)
--- NOTE | 2017-01-02 18:31 | NUR ---
LYING QUITELY. DENIES ANY NEEDS. LEFT FORE ARM SL. WILL MONITOR
--- NOTE | 2017-01-02 19:34 | NUR ---
INITIAL ROUNDS COMPETED. PT DENIES ANY DISCOMFORT. WILL CONITNUE TO MONITOR.
[2017-01-03 00:30] VITALS: BP 163/80
--- NOTE | 2017-01-03 01:29 | NUR ---
ASSESSMENT COMPLETED AT 2004 HRS. PT DENIED ANY DISCOMFRT. RAVF WITH GOOD BRUIT AND THRILL. LFA IV SL. LUNGS CTA. PT LEGALLY BLIND. APRESOLINE 10MG SIVP GIVEN WITH PM MEDS FOR 178/. 2400 FSBS 372. 8 UNITS HUMALOG GIVEN SUB-Q TO UPPER L ARM PER S/S. APPLE JUICE GIVEN PER REQUEST. BP 163/80 AT THAT TIME. PT CURRENTLY RESTING WITH EYES CLOSED. RESP EVEN AND REGULAR. SR UP X2 , CALL LIGHT WITHIN REACH.
--- NOTE | 2017-01-03 02:27 | NUR ---
PT RESTING WITH EYES CLOSED. RESP EVEN AND REGULAR. SR UP X2, CALL LIGHT WITHIN REACH.
--- NOTE | 2017-01-03 04:18 | NUR ---
PT RESTING WITH EYES CLOSED. RESP EVEN AND REGULAR. SR UP X2, CALL LIGHT WITHIN REACH.
[2017-01-03 04:31] VITALS: BP 152/71
[2017-01-03 05:32] LABS: BASOPHILS 0.4 % (0.0-2.0); EOSINOPHILS 6.6 % (0-7); HEMATOCRIT 33.2 % (42.0-54.0); HEMOGLOBIN 10.9 g/dL (13.5-17.5); IMMATURE GRANULOCYTES 0.5 % (0-5); LYMPHOCYTES 32.9 % (15-50); MCH 29.2 pg (26.0-34.0); MCHC 32.8 g/dL (31.0-37.0); MEAN PLATELET VOLUME 11.4 fL (7.4-10.4); MONOCYTES 10.7 % (2-11); NEUTROPHILS 48.9 % (40-80); PLATELET COUNT 227 10x3/uL (130-400); RBC 3.73 10x6/uL (4.20-6.10); RDW 12.8 % (11.5-14.5); WBC 9.9 10x3/uL (4.8-10.8)
[2017-01-03 06:03] LABS: ANION GAP 21.3 mmol/L (8-16); CALCIUM 8.8 mg/dL (8.5-10.1); CARBON DIOXIDE 25.6 mmol/L (21.0-32.0); CREATININE - SERUM 13.4 mg/dL (0.6-1.3)
[2017-01-03 06:07] LABS: POTASSIUM - SERUM 4.9 mmol/L (3.5-5.1)
--- NOTE | 2017-01-03 06:57 | NUR ---
VSS THROUGHOUT NIGHT. PT DENIED ANY DISCOMFORT. NEEDS MET; WILL CONTINUE TO MONITOR.
[2017-01-03 08:17] VITALS: BP 139/89
[2017-01-03 12:31] VITALS: BP 162/83
--- NOTE | 2017-01-03 16:00 | NUR ---
ALERT AND ORIENTED X4. TAKEN TO DIALYSIS VIA WHEELCHAIR.
--- NOTE | 2017-01-03 17:32 | NUR ---
Patient Name: JUVENAL MILTON Encounter No: [id number] : 1980 Primary Insurance: MEDICARE A & B Anticipated DC Date: Planned Disposition: HOME WITH HOME HEALTH External Planned Provider: [facility] DCP follow-up note: CM RECEIVED DISCHARGE PLANNING ORDER. CM RECEIVED CALL FROM SON MILTON ([phone]), PT'S BROTHER, WHO REPORTS PT WILL BE DISCHARGING TO THE HOME OF PT'S UNCLE AND AUNT, IRENE AND BARBARA KIERAN, [address] [place] [address]. [id number]. SON WANTS HOME HEALTH WITH [facility] FOR PT. SON REPORTED THAT HE HAS SPOKEN TO DR. HAM TO ENSURE THAT ALL SERVICES THAT CAN BE ARRANGED FOR HOME CARE WILL BE ORDERED. CM EXPLAINED AGAIN THAT MEDICARE COVERS HOME HEALTH SERVICES AND CM DISCUSSED LIMITATIONS OF HOME HEALTH AND EXPLAINED THAT HOME HEALTH WILL NOT PREPARE MEALS FOR PT AND WILL NOT PROVIDE SUPERVISORY CARE FOR PT IN THE HOME. SON REPORTED UNDERSTANDING AND THAT THE FAMILY WILL BE WORKING TO GET THE MEDICAID APPLICATION TURNED IN AND HOPEFULLY APPROVED. CM PROVIDED SON WITH MEALS ON WHEELS PHONE NUMBER FOR [facility] AND NUMBER TO PT'S HOME DIALYSIS UNIT. SON REPORTS THAT THEY HAVE COMPLETED THE MEDICAID APPLICATION AND WILL TURN IT IN POSSIBLY TODAY. FAMILY IS ALSO WORKING ON POSSIBLE ASSISTED LIVING PLACEMENT FOR PT IF APPROVED BY MEDICAID. CM SPOKE TO PT IN ROOM, PT IS NOT WANTING LONG-TERM FACILITY PLACEMENT AND VERFIED DISCHARGE PLAN TO RETURN TO HIS UNCLE'S HOME, REPORTS HIS BROTHER, CLAUDIO, WILL BE PICKING HIM UP. WHEN ASKED ABOUT HOME HEALTH, PT WAS ACCEPTING OF [facility] HIS BROTHER HAD ASKED FOR. CHOICE SIGNED FOR [facility]. IMPORTANT MESSAGE FROM MEDICARE PROVIDED AND EXPLAINED. CM TO ARRANGE HOME HEALTH FOLLOW UP WITH [facility] WITH DOCTOR AGREEMENT AND ORDERS. Nadir Dallas, CASE MANGEMENT
--- NOTE | 2017-01-03 19:30 | NUR ---
SLEEPING, EASILY AROUSED, DENIES NEEDS, ASSESSMENT COMPLETE, BED LOWEST POSITION, CALL LIGHT IN REACH, SIDE RAILS UP X2, WILL CONTINUE PLAN OF CARE, REQUESTS FERNANDO MAHARAJ, GIVEN PER REQUEST
[2017-01-03 20:00] VITALS: BP 184/101
--- NOTE | 2017-01-04 00:27 | NUR ---
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 CALL LIGHT IN REACH. WILL CONT TO MONITOR.
[2017-01-04 02:00] VITALS: BP 155/93
[2017-01-04 05:57] LABS: BASOPHILS 0.2 % (0.0-2.0); EOSINOPHILS 4.9 % (0-7); HEMATOCRIT 33.1 % (42.0-54.0); HEMOGLOBIN 10.8 g/dL (13.5-17.5); IMMATURE GRANULOCYTES 0.4 % (0-5); LYMPHOCYTES 31.6 % (15-50); MCH 29.3 pg (26.0-34.0); MCHC 32.6 g/dL (31.0-37.0); MCV 89.7 fL (80.0-100.0); MEAN PLATELET VOLUME 10.3 fL (7.4-10.4); MONOCYTES 12.1 % (2-11); NEUTROPHILS 50.8 % (40-80); RBC 3.69 10x6/uL (4.20-6.10); RDW 12.7 % (11.5-14.5)
[2017-01-04 06:12] LABS: ANION GAP 13.6 mmol/L (8-16); CARBON DIOXIDE 32.5 mmol/L (21.0-32.0); CREATININE - SERUM 9.7 mg/dL (0.6-1.3); POTASSIUM - SERUM 4.1 mmol/L (3.5-5.1)
[2017-01-04 06:34] LABS: PLATELET COUNT 297 10x3/uL (130-400)
--- NOTE | 2017-01-04 07:32 | NUR ---
ASSESSMENT DONE. PT SLEEPING. OPENS EYES TO VOICE. NO DISTRESS NOTED. RESP EVEN AND UNLABORED. CALL LIGHT WITH IN REACH. WILL CONT. TO MONITOR.
[2017-01-04 08:39] VITALS: BP 178/87
--- NOTE | 2017-01-04 09:29 | NUR ---
RESTS IN BED WITHOUT NEEDS VOICED. CALL LIGHT IN REACH. WILL MONITOR.
[2017-01-04 12:09] VITALS: BP 167/89
--- NOTE | 2017-01-04 13:47 | NUR ---
Nutrition follow-up: Diet: Renal ADA consisten CHO PO intake 100% of meals Labs reviewed FSBS: some readings with poor control @ times +BM Wt: 139# PO intake is good at this time RDN following.
[2017-01-04 15:42] VITALS: BP 167/96
--- NOTE | 2017-01-04 16:00 | NUR ---
D/C INSTRUCTIONS GIVEN TO PT AND HIS AUNT. VERBALIZED UNDERSTANDING. PT D/C HOME VIA PRIVATE VEHILCE. PT DECLINED W/C TO FRONT. PT WANTED TO WALK.
--- NOTE | 2017-01-04 16:03 | NUR ---
Patient Name: JUVENAL MILTON Encounter No: [id number] : 1980 Primary Insurance: MEDICARE A & B Anticipated DC Date: 01-04-2017 Planned Disposition: Home with Home Health External Planned Provider: [facility] LATE ENTRY: DCP follow-up note: CM RECEIVED DISCHARGE AND HOME HEALTH ORDER, SPOKE TO PT IN ROOM, PT VERFIED DISCHARGE PLAN OF HOME TODAY WITH HOME HEALTH AND IS IN AGREEMENT WITH PLAN. CM CALLED PT'S BROTHER, CLAUDIO, , VERIFIED DISCHARGE PLAN OF HOME HEALTH AND CLAUDIO REPORTED THAT PT'S AUNT IS ON THE WAY TO [facility] PT THIS AFTERNOON TO TAKE PT HOME. CM DISCUSSED HOW TO ACCESS HOME HEALTH AFTER HOURS IF NEEDED AND ADVISED THAT HOME HEALTH WILL CALL TO TRY TO SCHEDULE ADMISSION WITH PT AT HOME TOMORROW. CLAUDIO REPORTED HIS BROTHER IS FOLLOWING UP WITH MEDICAID AND ASSISTED LIVING FOR PT AND DENIED FURTHER DISCHARGE NEEDS. CM CALLED [facility], , SPOKE TO HEATHER WHO TOOK REFERRAL. CM REQUESTED NURSING AND SHIPPING CLERK TO FOLLOW UP WITH PT AT HOME. HEATHER WILL ATTEMPT TO SCHEDULE PT'S ADMISSION FOR HOME HEALTH TOMORROW BEFORE PT'S DIALYSIS APPOINTMENT AND IF NOT ABLE, WILL SCHEDULE PT FOR TUESDAY ON NON DIALYSIS DAY. CM FAXED REFERRAL TO [facility] AT [phone]. NO FURTHER DISCHARGE NEEDS IDENTIFIED. Nadir Dallas, CASE MANAGEMENT
--- NOTE | 2017-01-06 07:19 | DS ---
PATIENT:JUVENAL MILTON :[birth year] MEDICAL RECORD: [id number] DISCHARGE SUMMARY ADMISSION DATE: 12/27/16 DISCHARGE DATE: 01/04/17 DATE OF DISCHARGE: 01/04/2017 HISTORY OF PRESENT ILLNESS: This is a 36-year-old gentleman who has been attempting to live by himself, presented to the Emergency Room with altered mental status. He presented to the Emergency Room now multiple times with altered mental status, had neurological evaluation again by Dr. Alonzo including EEGs. He has been advised to take his Keppra 500 mg 3 times a day. 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 His family is trying to help and they are somewhat confused about our medical system these days and that they have to obtaining an assisted living and bring that for us to sign. He has been ambulating too well and has declined himself to go to rehab and declines himself to go into the [facility]. I can understand the environment, but he certainly needs someone to be able to monitor him, especially with his diabetes. I am also going to just give his Lantus in the morning, so that he has less episodes of hypoglycemia in the evening. He does have significantly negative test here in the hospital including blood cultures. He has been evaluated by the case resolution specialist and attempt to find anything we can for him. Home prescriptions are Keppra 500 mg after dialysis Mondays, Wednesdays and Fridays. I did emphasize the importance of this medication. He is to take PhosLo 667 with meals t.i.d. His similar home prescriptions are Norvasc 10 mg b.i.d., Coreg 25 b.i.d., clonidine 0.2 t.i.d., lisinopril 20 twice a day, Neurontin 100 mg q.h.s. He does have hydrocodone p.r.n. discomfort, but I am trying to avoid that prescription as he has not have any overt pain at this time. Tessalon Perles 100 mg t.i.d. p.r.n. cough that he has at home, but only when he has a cough. The same with guaifenesin or Mucinex DM ER. He does take fluticasone, nasal spray daily. I changed his Tums to PhosLo as he was complaining about chewing, but he could take either, but I did mention that they are same medication and wrote that down for him. Floranex 1 tab b.i.d., Protonix 40 a day. His Lantus was 12 units subQ b.i.d. I asked him to take 15 units a day, but did leave the Lantus 12 units subQ b.i.d. I did write these out on a piece of paper for him, which he did keep in place in his belongings. He is to follow up at dialysis 3 days a week and return to the Emergency Room for any problems. I certainly apologized for our health care system for young man such as himself that during this significantly ill at 36 years of age, certainly glad that his family is helping him as well. Renal diet with fluid restriction and return for any problems. TRANSINT:[id number] Voice Confirmation ID: [id number] DOCUMENT ID: [id number] ALETHA HAM MD at 0719 CC: [id number] DICTATION DATE: 01/04/17 1416 STEREO COMPILER: 01/05/17 0147 DIS IN 01/04/17 [facility] [address] [place] [address]
--- NOTE | 2017-01-12 08:22 | EEG ---
PATIENT:JUVENAL MILTON DATE OF SERVICE: 12/27/16 MEDICAL RECORD: [id number] DATE OF : [birth year] LOCATION:D.212 D.M2 ADMISSION DATE: 12/27/16 REFERRING PHYSICIAN: INTERPRETING PHYSICIAN: GIOVANY SANCHEZ MD DATE OF SERVICE: 12/30/2016 Referred as an inpatient by myself in room 2306. ELECTROENCEPHALOGRAM NUMBER: [id number] TIME OF EXAMINATION: 10:00 a.m. TECHNICAL DATA: This electroencephalographic recording consisted of approximately 20 minutes of data collection utilizing the international 10/20 system of electrode placement and both referential and non-referential montages. Sixteen channels of electrocerebral recording are accompanied by a 17th channel dedicated to the electrocardiographic rhythm and 2 channels of electromyographic recording. Recording is performed entirely in the waking state utilizing activation by photic stimulation. ELECTROENCEPHALOGRAPHIC DATA: The entirety of the recorded electrocerebral activity is performed in the waking state. Electromyographic artifact is prominent throughout and rapid eye movements are seen. The posterior dominant background consists of a symmetric, semi-rhythmic, waxing and waning 8-9 Hz alpha activity, which is suppressed by eye opening. Also seen is an intermittent irregular, generalized and symmetric 4-5 Hz theta slowing, which occurs for periods of 1-2 seconds once every 1-2 pages. On rare occasion, sharp waves are observed with a minor after going slow component focally in the left frontal region. No clinical or electrocerebral seizures were identified. Photic stimulation induces no change in the recorded electrocerebral activity. INTERPRETATION: 1. Sharp waves, focal, left frontal (awake). 2. Intermittent slow, generalized. This electroencephalographic recording is indicative of a moderate diffuse encephalopathy and gives evidence of an epileptogenic focus of left frontal origin, maximal on this scalp recording at F7. TRANSINT:[id number] Voice Confirmation ID: [id number] DOCUMENT ID: [id number] GIOVANY SANCHEZ MD at 0822 CC: [id number] DICTATION DATE: 12/31/16 0752 BLANKMAKER: 12/31/16 0955 DIS IN 01/04/17 [place] [id number]
== END 2017-01-04 16:00 | disposition home health service (06) | DRG 698 ==
LOC: D.ER 10:18 → D.ICU 13:58 → D.M2 13:58 → D.ICU 12-29 08:38 → D.M2 01-01 17:28
PROVIDERS: Emergency Medicine; ADMIT Internal Medicine Nephrology
PROC: 5A1D60Z (ICD-10-PCS; principal; 2016-12-28)
DX: E11.22 Type 2 diabetes mellitus with diabetic chronic kidney disease (principal); G93.41 Metabolic encephalopathy; I12.0 Hypertensive chronic kidney disease with stage 5 chronic kidney disease or end stage renal disease; I24.8 Other forms of acute ischemic heart disease; N18.6 End stage renal disease; Z99.2 Dependence on renal dialysis; Z91.15 Patient's noncompliance with renal dialysis; D63.1 Anemia in chronic kidney disease; E83.39 Other disorders of phosphorus metabolism; G40.909 Epilepsy, unspecified, not intractable, without status epilepticus; E11.40 Type 2 diabetes mellitus with diabetic neuropathy, unspecified; Z79.4 Long term (current) use of insulin

== ENCOUNTER 2017-01-09 22:07 | Emergency (ER) | payer MEDICARE ==
[2016-12-28 14:26] VITALS: BMI 23.5
[~2017-01-09 22:07] MED LIST changes: +KEPPRA500 MG PO; +PHOSLO667 MG PO
[2017-01-09 22:55] LABS: BASOPHILS 0.3 % (0.0-2.0); EOSINOPHILS 4.9 % (0-7); HEMATOCRIT 30.8 % (42.0-54.0); HEMOGLOBIN 10.2 g/dL (13.5-17.5); IMMATURE GRANULOCYTES 0.6 % (0-5); LYMPHOCYTES 31.8 % (15-50); MCH 29.7 pg (26.0-34.0); MCHC 33.1 g/dL (31.0-37.0); MCV 89.5 fL (80.0-100.0); MEAN PLATELET VOLUME 9.3 fL (7.4-10.4); MONOCYTES 9.3 % (2-11); NEUTROPHILS 53.1 % (40-80); PLATELET COUNT 457 10x3/uL (130-400); RBC 3.44 10x6/uL (4.20-6.10); RDW 12.8 % (11.5-14.5); WBC 11.5 10x3/uL (4.8-10.8)
[2017-01-09 23:14] LABS: ALBUMIN 3.5 g/dL (3.4-5.0); ALKALINE PHOSPHATASE 180 U/L (46-116); ALT (SGPT) 36 U/L (10-68); CALC OSMOLALITY 306 mosm/kg (275-300); CARBON DIOXIDE 22.9 mmol/L (21.0-32.0); CHLORIDE - SERUM 96 mmol/L (98-107); CREATININE - SERUM 10.8 mg/dL (0.6-1.3); PROTEIN - SERUM 7.8 g/dL (6.4-8.2); SODIUM 134 mmol/L (136-145); UREA NITROGEN 70 mg/dL (7-18); eGFR NON AFRICAN AMERICAN 6 mL/min (90-120)
[2017-01-09 23:18] LABS: GLUCOSE 421 mg/dL (74-106)
[2017-01-09 23:27] LABS: AMYLASE - SERUM 128 U/L (25-115); KETONE - SERUM NEGATIVE (NEGATIVE); LIPASE 362 U/L (73-393); MAGNESIUM - SERUM 1.9 mg/dL (1.8-2.4); PHOSPHOROUS 7.2 mg/dL (2.5-4.9); PRO BNP 16096 pg/mL (0-125); TROPONIN-I < 0.017 ng/mL (0.000-0.060)
[2017-01-10 01:05] LABS: UDS - AMPHET NEGATIVE QUAL (NEGATIVE); UDS - BARB NEGATIVE QUAL (NEGATIVE); UDS - BENZO NEGATIVE QUAL (NEGATIVE); UDS - COCAINE NEGATIVE QUAL (NEGATIVE); UDS - METH NEGATIVE QUAL (NEGATIVE); UDS - OPIATE NEGATIVE QUAL (NEGATIVE); UDS - PCP NEGATIVE QUAL (NEGATIVE); UDS - THC NEGATIVE QUAL (NEGATIVE)
[2017-01-10 01:18] LABS: CALCIUM 7.8 mg/dL (8.5-10.1); CARBON DIOXIDE 22.4 mmol/L (21.0-32.0); POTASSIUM - SERUM 4.4 mmol/L (3.5-5.1)
== END 2017-01-10 02:10 | disposition home or self-care (01) ==
LOC: D.ER 22:07
PROVIDERS: Surgery
DX: R53.81 Other malaise (principal); E11.65 Type 2 diabetes mellitus with hyperglycemia; Z79.4 Long term (current) use of insulin; I12.9 Hypertensive chronic kidney disease with stage 1 through stage 4 chronic kidney disease, or unspecified chronic kidney disease; N18.9 Chronic kidney disease, unspecified

== ENCOUNTER 2018-03-19 21:10 | Emergency (ER) | payer MEDICARE ==
[2016-12-28 14:26] VITALS: BMI 23.5
== END 2018-03-19 23:45 | disposition home or self-care (01) ==
LOC: D.ER 21:10
DX: I12.9 Hypertensive chronic kidney disease with stage 1 through stage 4 chronic kidney disease, or unspecified chronic kidney disease (principal); N18.9 Chronic kidney disease, unspecified; E11.9 Type 2 diabetes mellitus without complications; Z79.4 Long term (current) use of insulin